=== PATIENT | female | born 2000 | race Caucasian/White ===

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

== ENCOUNTER 2022-01-18 13:49 | Emergency (ER) | payer OTHER ==
[~2022-01-18] VITALS: Ht 172.7 cm; Wt 90.9 kg
[2022-01-18 14:27] LABS: BASOPHILS % (AUTO) 0.4 % (0.0-2.0); EOSINOPHILS % (AUTO) 0.5 % (1.0-6.0); HEMATOCRIT 46.7 % (36-46); HEMOGLOBIN 15.7 g/dL (12.0-16.0); LYMPHOCYTES # (AUTO) 0.7 K/uL (1.0-4.8); LYMPHOCYTES % (AUTO) 4.5 % (22.0-44.0); MEAN CORPUSCULAR HEMOGLOBIN 31.8 pg (26.0-34.0); MEAN CORPUSCULAR HGB CONC 33.6 G/dL (31.0-37.0); MEAN CORPUSCULAR VOLUME 95 fL (80-100); MONOCYTES # (AUTO) 0.6 K/uL (0.1-1.0); NEUTROPHILS # (AUTO) 13.9 K/uL (1.8-7.7); PLATELET COUNT (AUTO) 284 K/uL (150-450); RED BLOOD CELL COUNT(AUTO) 4.93 MIL/uL (4.00-5.20); RED CELL DISTRIBUTION WIDTH 12.9 % (11.5-14.5)
[2022-01-18] MEDS ORDERED: SODIUM CHLORIDE 0.9% 1,000 ML IV ONE (14:30)
[2022-01-18] MEDS ORDERED: ONDANSETRON HCL 4 MG/2 ML VIAL IVP ONE (14:30)
[2022-01-18 14:32] LABS: NEUTROPHILS % (AUTO) 90.6 % (40.0-70.0)
[2022-01-18 14:36] LABS: ANION GAP 12 mmol/L (8-16); CALCIUM, TOTAL 9.7 mg/dL (8.8-10.5); CARBON DIOXIDE 24 mmol/L (22-29); CHLORIDE 101 mmol/L (98-107); GLOMERULAR FILTR. RATE CALC > 60 mL/min (>60); GLUCOSE,RANDOM 95 mg/dL (70-110); POTASSIUM 3.9 mmol/L (3.5-5.1); SODIUM SERUM 137 mmol/L (136-145); UREA NITROGEN, BLOOD 14 mg/dL (7-18)
[2022-01-18 14:41] LABS: ALANINE AMINOTRANSFERASE 13 U/L (12-78); ALBUMIN 4.5 g/dL (3.4-5.0); ALKALINE PHOSPHATASE 119 U/L (46-116); ASPARTATE AMINOTRANSFERASE 14 U/L (15-37); BILIRUBIN,TOTAL 0.6 mg/dL (0.1-1.0); LIPASE 146 U/L (73-393); TOTAL PROTEIN, SERUM 8.1 g/dL (6.4-8.2)
[2022-01-18] MEDS ORDERED: KETOROLAC TROMETHAMINE 30 MG/ML VIAL IVP ONE (15:00)
[2022-01-18 15:54] VITALS: BP 129/82
== END 2022-01-18 16:11 | disposition home or self-care (01) ==
LOC: EMS 13:54
DX: K52.9 Noninfective gastroenteritis and colitis, unspecified (principal); R10.13 Epigastric pain; R11.10 Vomiting, unspecified
CPT/HCPCS: 99284; 96374; 96361; 96375; 80053; 83690; 85025; 36415; J1885; J2405; J7030

== ENCOUNTER 2022-02-10 11:16 | Emergency (ER) | payer OTHER ==
[~2022-02-10] VITALS: Ht 172.7 cm; Wt 90.9 kg
[2022-02-10 11:22] VITALS: BP 139/62
[2022-02-10] MEDS ORDERED: IBUP-2070 PO (13:24)
== END 2022-02-10 13:47 | disposition home or self-care (01) ==
LOC: EMS 11:17
DX: S80.01XA Contusion of right knee, initial encounter (principal); W19.XXXA Unspecified fall, initial encounter; Y93.89 Activity, other specified; Y92.89 Other specified places as the place of occurrence of the external cause; Y99.0 Civilian activity done for income or pay
CPT/HCPCS: 29530; 99283

== ENCOUNTER 2022-10-12 16:47 | Emergency (ER) | payer OTHER ==
[~2022-10-12] VITALS: Ht 172.7 cm; Wt 109.0 kg
[~2022-10-12 16:47] MED LIST: IBUP-1492 PO
[2022-10-12] MEDS ORDERED: KETOROLAC TROMETHAMINE 30 MG/ML VIAL IVP ONE (17:15)
[2022-10-12] MEDS ORDERED: SODIUM CHLORIDE 0.9% 1,000 ML IV ONE (17:15)
[2022-10-12 17:41] LABS: BASOPHILS % (AUTO) 0.2 % (0.0-2.0); EOSINOPHILS % (AUTO) 0.1 % (1.0-6.0); HEMATOCRIT 44.2 % (36-46); HEMOGLOBIN 14.4 g/dL (12.0-16.0); LYMPHOCYTES # (AUTO) 0.6 K/uL (1.0-4.8); LYMPHOCYTES % (AUTO) 4.8 % (22.0-44.0); MEAN CORPUSCULAR HEMOGLOBIN 31.2 pg (26.0-34.0); MEAN CORPUSCULAR HGB CONC 32.7 G/dL (31.0-37.0); MEAN CORPUSCULAR VOLUME 95 fL (80-100); MONOCYTES # (AUTO) 0.5 K/uL (0.1-1.0); MONOCYTES % (AUTO) 3.7 % (2.0-9.0); PLATELET COUNT (AUTO) 259 K/uL (150-450); RED BLOOD CELL COUNT(AUTO) 4.63 MIL/uL (4.00-5.20); RED CELL DISTRIBUTION WIDTH 12.7 % (11.5-14.5)
[2022-10-12 17:44] LABS: NEUTROPHILS % (AUTO) 91.2 % (40.0-70.0)
[2022-10-12 18:11] LABS: ALANINE AMINOTRANSFERASE 13 U/L (12-78); ALBUMIN 4.5 g/dL (3.4-5.0); ALKALINE PHOSPHATASE 94 U/L (46-116); ANION GAP 11 mmol/L (8-16); ASPARTATE AMINOTRANSFERASE 18 U/L (15-37); BILIRUBIN,TOTAL 0.4 mg/dL (0.1-1.0); CALCIUM, TOTAL 9.5 mg/dL (8.8-10.5); CARBON DIOXIDE 27 mmol/L (22-29); CHLORIDE 102 mmol/L (98-107); CREATININE 0.88 mg/dL (0.60-1.30); GLOMERULAR FILTR. RATE CALC > 60 mL/min (>60); GLUCOSE,RANDOM 97 mg/dL (70-110); HCG,QUANTITATIVE < 1 mIU/mL (0-6); LIPASE 20 U/L (73-393); POTASSIUM 4.5 mmol/L (3.5-5.1); SODIUM SERUM 140 mmol/L (136-145); TOTAL PROTEIN, SERUM 8.2 g/dL (6.4-8.2); UREA NITROGEN, BLOOD 10 mg/dL (7-18)
[2022-10-12] MEDS ORDERED: ONDANSETRON HCL 4 MG/2 ML VIAL IVP ONE (18:30)
[2022-10-12 18:40] VITALS: BP 117/71
[2022-10-12] MEDS ORDERED: ONDA-104 PO (18:52)
== END 2022-10-12 18:56 | disposition still patient (30) ==
LOC: EMS 16:47
DX: R11.2 Nausea with vomiting, unspecified (principal); R10.13 Epigastric pain
CPT/HCPCS: 99285; 74176; 96374; 96361; 96375; 80053; 83690; 84702; 85025; 36415; J1885; J2405; J7030

== ENCOUNTER 2023-01-17 18:48 | Emergency (ER) | payer OTHER ==
[~2023-01-17] VITALS: Ht 172.7 cm; Wt 91.0 kg
[~2023-01-17 18:48] MED LIST changes: -IBUP-1492 PO; +ONDA-104 PO
[2023-01-17 18:58] VITALS: TEMP 98.4
[2023-01-17 20:59] LABS: BASOPHILS % (AUTO) 0.3 % (0.0-2.0); EOSINOPHILS % (AUTO) 0.4 % (1.0-6.0); HEMATOCRIT 43.4 % (36-46); HEMOGLOBIN 14.4 g/dL (12.0-16.0); LYMPHOCYTES # (AUTO) 1.5 K/uL (1.0-4.8); LYMPHOCYTES % (AUTO) 10.4 % (22.0-44.0); MEAN CORPUSCULAR HEMOGLOBIN 31.8 pg (26.0-34.0); MEAN CORPUSCULAR HGB CONC 33.1 G/dL (31.0-37.0); MEAN CORPUSCULAR VOLUME 96 fL (80-100); MONOCYTES # (AUTO) 0.6 K/uL (0.1-1.0); MONOCYTES % (AUTO) 4.6 % (2.0-9.0); NEUTROPHILS # (AUTO) 11.8 K/uL (1.8-7.7); NEUTROPHILS % (AUTO) 84.3 % (40.0-70.0); PLATELET COUNT (AUTO) 288 K/uL (150-450); RED BLOOD CELL COUNT(AUTO) 4.52 MIL/uL (4.00-5.20); RED CELL DISTRIBUTION WIDTH 12.9 % (11.5-14.5)
[2023-01-17 21:09] LABS: CALCIUM, TOTAL 9.4 mg/dL (8.8-10.5); CARBON DIOXIDE 27 mmol/L (22-29); CHLORIDE 100 mmol/L (98-107); CREATININE 0.87 mg/dL (0.60-1.30); GLOMERULAR FILTR. RATE CALC > 60 mL/min (>60); GLUCOSE,RANDOM 89 mg/dL (70-110); SODIUM SERUM 144 mmol/L (136-145)
[2023-01-17 21:15] LABS: ALANINE AMINOTRANSFERASE 11 U/L (12-78); ALKALINE PHOSPHATASE 99 U/L (46-116); ASPARTATE AMINOTRANSFERASE 17 U/L (15-37); BILIRUBIN,TOTAL 0.7 mg/dL (0.1-1.0); TOTAL PROTEIN, SERUM 7.5 g/dL (6.4-8.2)
[2023-01-17 21:24] LABS: ANION GAP 17 mmol/L (8-16)
[2023-01-17] MEDS ORDERED: SODIUM CHLORIDE 0.9% 1,000 ML IV ONE (21:30)
[2023-01-17] MEDS ORDERED: FAMOTIDINE 20 MG/2 ML VIAL IVP ONE (21:30)
[2023-01-17] MEDS ORDERED: MAG HYDROX/AL HYDROX/SIMETH 30 ML SUSP UDCUP PO ONE (21:30)
[2023-01-17] MEDS ORDERED: ACETAMINOPHEN 500 MG TABLET PO ONE (21:30)
[2023-01-17] MEDS ORDERED: KETOROLAC TROMETHAMINE 15 MG/ML VIAL IVP ONE (21:30)
[2023-01-17] MEDS ORDERED: KETOROLAC TROMETHAMINE 30 MG/ML VIAL IVP ONE (21:30)
[2023-01-17] MEDS ORDERED: ONDANSETRON HCL 4 MG/2 ML VIAL IVP ONE (21:30)
[2023-01-17 22:02] VITALS: BP 147/91; PULSE 60; RESP 16
[2023-01-17 22:07] LABS: COVID AG,FIA SOURCE NASOPHARYNGEAL
[2023-01-17 22:54] LABS: HCG,QUANTITATIVE < 1 mIU/mL (0-6); LIPASE 12 U/L (16-77)
[2023-01-17] MEDS ORDERED: IOHEXOL 350 MG/ML 100 ML VIAL ONE (23:12)
[2023-01-17] MEDS ORDERED: SODIUM CHLORIDE 0.9% 100 ML ONE (23:12)
[2023-01-17 23:21] LABS: INFLUENZA TYPE A NEGATIVE FOR TYPE A (NEGATIVE); INFLUENZA TYPE B NEGATIVE FOR TYPE B (NEGATIVE)
[2023-01-18] MEDS ORDERED: ONDA-104 PO (00:20)
== END 2023-01-18 01:00 | disposition home or self-care (01) ==
LOC: EMS 18:49
DX: R11.2 Nausea with vomiting, unspecified (principal); Z20.822 Contact with and (suspected) exposure to COVID-19
CPT/HCPCS: 99285; 74177; 96374; 96375; 96361; 87426; 80053; 83690; 84702; 85025; 87804; 36415; J3490; J1885; J2405; Q9967; J7030; J7050

== ENCOUNTER 2023-07-27 19:29 | Emergency (ER) | payer OTHER ==
[~2023-07-27] VITALS: Ht 170.2 cm; Wt 90.9 kg
[2023-07-27 20:50] LABS: COVID AG,FIA SOURCE NASAL SWAB
[2023-07-27 21:19] LABS: INFLUENZA TYPE A NEGATIVE FOR TYPE A (NEGATIVE); INFLUENZA TYPE B NEGATIVE FOR TYPE B (NEGATIVE)
[2023-07-27 21:20] LABS: SARS-COV2 (COVID) ANTIGEN,FIA Negative (Negative)
[2023-07-27 21:22] LABS: BASOPHILS % (AUTO) 0.5 % (0.0-2.0); EOSINOPHILS % (AUTO) 1.7 % (1.0-6.0); HEMATOCRIT 41.8 % (36-46); HEMOGLOBIN 13.8 g/dL (12.0-16.0); LYMPHOCYTES % (AUTO) 16.4 % (22.0-44.0); MEAN CORPUSCULAR HEMOGLOBIN 31.9 pg (26.0-34.0); MEAN CORPUSCULAR HGB CONC 32.9 G/dL (31.0-37.0); MEAN CORPUSCULAR VOLUME 97 fL (80-100); MONOCYTES # (AUTO) 0.7 K/uL (0.1-1.0); MONOCYTES % (AUTO) 5.5 % (2.0-9.0); NEUTROPHILS # (AUTO) 9.3 K/uL (1.8-7.7); NEUTROPHILS % (AUTO) 75.9 % (40.0-70.0); PLATELET COUNT (AUTO) 304 K/uL (150-450); RED BLOOD CELL COUNT(AUTO) 4.31 MIL/uL (4.00-5.20); RED CELL DISTRIBUTION WIDTH 13.1 % (11.5-14.5); WHITE BLOOD COUNT (AUTO) 12.2 K/uL (4.5-11.0)
[2023-07-27 21:31] LABS: ANION GAP 10 mmol/L (8-16); CARBON DIOXIDE 28 mmol/L (22-29); CHLORIDE 100 mmol/L (98-107); CREATININE 0.96 mg/dL (0.60-1.30); GLOMERULAR FILTR. RATE CALC > 60 mL/min (>60); GLUCOSE,RANDOM 89 mg/dL (70-110); POTASSIUM 3.9 mmol/L (3.5-5.1); SODIUM SERUM 138 mmol/L (136-145); UREA NITROGEN, BLOOD 15 mg/dL (7-18)
[2023-07-27 21:37] LABS: ALANINE AMINOTRANSFERASE 17 U/L (12-78); ALKALINE PHOSPHATASE 80 U/L (46-116); ASPARTATE AMINOTRANSFERASE 18 U/L (15-37); BILIRUBIN,TOTAL 0.6 mg/dL (0.1-1.0); LIPASE 16 U/L (16-77); TOTAL PROTEIN, SERUM 7.3 g/dL (6.4-8.2)
[2023-07-27 21:56] LABS: CALCIUM, TOTAL 9.5 mg/dL (8.8-10.5)
[2023-07-27] MEDS ORDERED: IOHEXOL 350 MG/ML 100 ML VIAL ONE (22:02)
[2023-07-27] MEDS ORDERED: SODIUM CHLORIDE 0.9% 100 ML ONE (22:03)
[2023-07-27] MEDS: SODIUM CHLORIDE 0.9% 1,000 ML IV ONE (22:38)
[2023-07-27] MEDS: MAG HYDROX/ALUMINUM HYD/SIMETH 30 ML SUSPENSION UDCUP PO ONE (22:39)
[2023-07-27] MEDS: KETOROLAC TROMETHAMINE 30 MG/ML VIAL IVP ONE (22:48)
[2023-07-27] MEDS: ONDANSETRON HCL 4 MG/2 ML VIAL IVP ONE (22:48)
[2023-07-27] MEDS: FAMOTIDINE 20 MG/2 ML VIAL IVP ONE (22:49)
[2023-07-27 23:53] LABS: APPEARANCE,URINE CLEAR (CLEAR); BILIRUBIN,URINE NEGATIVE (NEGATIVE); COLOR,URINE LIGHT YELLOW (YELLOW); GLUCOSE, URINE (UA) NEGATIVE (NEGATIVE); KETONES,URINE NEGATIVE (NEGATIVE); LEUKOCYTE ESTERASE ,URINE NEGATIVE (NEGATIVE); NITRATE,URINE NEGATIVE (NEGATIVE); OCCULT BLOOD,URINE MODERATE (NEGATIVE); PROTEIN,URINE 30-70 mg/dL (NEGATIVE); UROBILINOGEN,URINE <=1.0 mg/dL (<=1.0)
[2023-07-27 23:57] LABS: ALCOHOL, URINE DRUG SCREEN NEGATIVE (NEGATIVE); AMPHET/METH SCREEN,URINE NEGATIVE (NEGATIVE); BARBITURATE SCREEN, URINE NEGATIVE (NEGATIVE); BENZODIAZEPINES SCREEN,URINE NEGATIVE (NEGATIVE); CANNABINOID SCREEN,URINE POSITIVE (NEGATIVE); COCAINE SCREEN,URINE POSITIVE (NEGATIVE); METHADONE SCREEN, URINE NEGATIVE (NEGATIVE); OPIATE SCREEN,URINE NEGATIVE (NEGATIVE); PHENCYCLIDINE SCREEN,URINE NEGATIVE (NEGATIVE)
[2023-07-28 00:15] LABS: BACTERIA,URINE None Seen /HPF (None Seen); SQUAMOUS EPITHELIAL CELL,UR Rare /LPF (None Seen); WBC,URINE None Seen /HPF (0-5)
[2023-07-28 03:00] VITALS: BP 133/74; PULSE 88; RESP 16; TEMP 97.3
== END 2023-07-28 03:35 | disposition home or self-care (01) ==
LOC: EMS 19:31
DX: R10.33 Periumbilical pain (principal); R11.2 Nausea with vomiting, unspecified; Z20.822 Contact with and (suspected) exposure to COVID-19
CPT/HCPCS: 99285; 74177; 96374; 96375; 96361; 87426; 80053; 83690; 84703; 85025; 87804; 36415; 80307; 81001; J3490; J1885; J2405; Q9967; J7030; J7050

== ENCOUNTER 2024-01-08 18:34 | Emergency (ER) | payer OTHER ==
[~2024-01-08] VITALS: Ht 170.2 cm; Wt 95.5 kg
[2024-01-08 19:06] VITALS: BP 129/62; PULSE 74; RESP 18; TEMP 98.4
[2024-01-08 20:16] LABS: BASOPHILS % (AUTO) 0.6 % (0.0-2.0); EOSINOPHILS % (AUTO) 0.4 % (1.0-6.0); HEMATOCRIT 40.5 % (36-46); HEMOGLOBIN 13.4 g/dL (12.0-16.0); LYMPHOCYTES # (AUTO) 0.8 K/uL (1.0-4.8); LYMPHOCYTES % (AUTO) 3.7 % (22.0-44.0); MEAN CORPUSCULAR HEMOGLOBIN 31.7 pg (26.0-34.0); MEAN CORPUSCULAR HGB CONC 33.1 G/dL (31.0-37.0); MEAN CORPUSCULAR VOLUME 96 fL (80-100); MONOCYTES % (AUTO) 4.4 % (2.0-9.0); NEUTROPHILS # (AUTO) 19.7 K/uL (1.8-7.7); NEUTROPHILS % (AUTO) 90.9 % (40.0-70.0); PLATELET COUNT (AUTO) 252 K/uL (150-450); RED BLOOD CELL COUNT(AUTO) 4.22 MIL/uL (4.00-5.20); RED CELL DISTRIBUTION WIDTH 12.9 % (11.5-14.5); WHITE BLOOD COUNT (AUTO) 21.7 K/uL (4.5-11.0)
[2024-01-08 20:25] LABS: ANION GAP 11 mmol/L (8-16); CALCIUM, TOTAL 8.7 mg/dL (8.8-10.5); CARBON DIOXIDE 24 mmol/L (22-29); CHLORIDE 102 mmol/L (98-107); CREATININE 0.92 mg/dL (0.60-1.30); GLOMERULAR FILTR. RATE CALC > 60 mL/min (>60); GLUCOSE,RANDOM 96 mg/dL (70-110); SODIUM SERUM 136 mmol/L (136-145); UREA NITROGEN, BLOOD 9 mg/dL (7-18)
[2024-01-08 20:41] LABS: ALCOHOL, BLOOD (SERUM) < 3 mg/dL (0-10)
[2024-01-08 21:19] LABS: PH,URINE DRUG SCREEN 5.5 (5.0-8.0)
[2024-01-08 21:33] LABS: ALCOHOL, URINE DRUG SCREEN NEGATIVE (NEGATIVE); AMPHET/METH SCREEN,URINE NEGATIVE (NEGATIVE); BARBITURATE SCREEN, URINE NEGATIVE (NEGATIVE); BENZODIAZEPINES SCREEN,URINE NEGATIVE (NEGATIVE); CANNABINOID SCREEN,URINE POSITIVE (NEGATIVE); COCAINE SCREEN,URINE POSITIVE (NEGATIVE); METHADONE SCREEN, URINE NEGATIVE (NEGATIVE); OPIATE SCREEN,URINE NEGATIVE (NEGATIVE); PHENCYCLIDINE SCREEN,URINE NEGATIVE (NEGATIVE)
[2024-01-08] MEDS: NALOXONE HCL 1 MG/ML 2 ML SYRINGE IVP ONE (22:01)
== END 2024-01-08 22:11 | disposition home or self-care (01) ==
LOC: EMS 18:36
DX: S20.212A Contusion of left front wall of thorax, initial encounter (principal); S80.812A Abrasion, left lower leg, initial encounter; R41.82 Altered mental status, unspecified; T40.5X1A Poisoning by cocaine, accidental (unintentional), initial encounter; F14.10 Cocaine abuse, uncomplicated; Z79.899 Other long term (current) drug therapy; X58.XXXA Exposure to other specified factors, initial encounter; Y93.89 Activity, other specified; Y92.89 Other specified places as the place of occurrence of the external cause; Y99.8 Other external cause status
CPT/HCPCS: 99285; 96374; 71045; 80048; 84703; 85025; 36415; 93005; 80307; G0480; J2310

== ENCOUNTER 2025-01-24 20:55 | Emergency (ER) | payer OTHER ==
[~2025-01-24] VITALS: Ht 172.7 cm; Wt 84.1 kg
[2025-01-24 21:10] VITALS: BP 130/83; PULSE 79; RESP 15; TEMP 97.9; O2SAT 98
[2025-01-24] MEDS: IBUPROFEN 400 MG TABLET PO ONE (21:29)
[2025-01-24] MEDS ORDERED: ACETAMINOPHEN 500 MG TABLET PO ONE (21:30)
== END 2025-01-24 22:54 | disposition home or self-care (01) ==
LOC: EMS 20:55
DX: S93.402A Sprain of unspecified ligament of left ankle, initial encounter (principal); Z79.899 Other long term (current) drug therapy; W01.0XXA Fall on same level from slipping, tripping and stumbling without subsequent striking against object, initial encounter; X50.1XXA Overexertion from prolonged static or awkward postures, initial encounter; Y93.01 Activity, walking, marching and hiking; Y92.89 Other specified places as the place of occurrence of the external cause; Y99.8 Other external cause status
CPT/HCPCS: 99283